=== PATIENT | female | born 1995 | race Caucasian/White ===

== ENCOUNTER 2017-04-29 17:36 | Emergency (ER) | payer OTHER ==
[~2017-04-29] VITALS: Ht 157.5 cm; Wt 63.0 kg
== END 2017-04-29 19:15 | disposition short-term general hospital (02) ==
LOC: CED 17:36
DX: O9A.213 Injury, poisoning and certain other consequences of external causes complicating pregnancy, third trimester (principal); Z3A.38 38 weeks gestation of pregnancy
CPT/HCPCS: 99284